=== PATIENT | female | born 1995 | race Caucasian/White ===

== ENCOUNTER 2024-09-10 19:36 | Emergency (ER) | payer BC ==
[2024-09-10 19:51] VITALS: BP 128/84; PULSE 90; RESP 18; TEMP 97.6; BMI 26.5
[2024-09-10] MEDS ORDERED: ACETAMINOPHEN INJECTION 100 ML ONE (21:12)
[2024-09-10] MEDS: ACETAMINOPHEN 1000 MG/100 ML BAG IVPB ONE (21:25)
[2024-09-10 21:36] LABS: INR 1.01 (0.83-1.09); PROTHROMBIN TIME (PATIENT) 11.4 SEC (9.7-13.0)
[2024-09-10 21:38] LABS: ACTIVATED PTT 33.8 SECONDS (25.2-36.5)
== END 2024-09-10 22:26 | disposition home or self-care (01) ==
LOC: JER 19:36
PROC: 3E033NZ Introduction of Analgesics, Hypnotics, Sedatives into Peripheral Vein, Percutaneous Approach (ICD-10-PCS; principal; 2024-09-10)
DX: S70.11XA Contusion of right thigh, initial encounter (principal); W08.XXXA Fall from other furniture, initial encounter
CPT/HCPCS: 73552-TC-RT-FY; 84703; 85610; 85730; 96374; 99284-25; J0131